=== PATIENT | male | born 1935 | race Caucasian/White ===

== ENCOUNTER → 2023-04-26 | Outpatient (CLI) | payer OTHER | END | disposition home or self-care (01) | LOC: RAD 10:48 | PROVIDERS: ATTEND Chiropractor | DX: M47.812 Spondylosis without myelopathy or radiculopathy, cervical region (principal); M25.78 Osteophyte, vertebrae ==

== ENCOUNTER 2023-09-18 19:08 | Inpatient (IN) | payer OTHER ==
[~2023-09-18] VITALS: Ht 175.3 cm; Wt 55.0 kg
[~2023-09-18 19:08] MED LIST: ACCUNEB 0.1.25 MG/1 INH; BREZTRI AEROS10.7 GM INH; Carafate1 GM PO; EMLA 2.5% 30GM30 GM T; HYDROXYZINE HCL25 MG PO; LISINOPRIL20 MG PO; METOPROLOL SUCC25 M2 PO; PANTOPRAZOLE SO40 MG PO; TOPROL XL25 MG PO
[2023-09-18 19:15] VITALS: BP 163/89
[2023-09-18] MEDS ORDERED: 8 HOUR PAIN RE650 M1 PO (19:42)
[2023-09-18] MEDS ORDERED: ONDANSETRON HYDR4 M1 PO (19:43)
[2023-09-18] MEDS ORDERED: ADULT LOW DOSE81 MG PO (19:46)
[2023-09-18] MEDS ORDERED: Diltiazem Hydrochloride 25 MG/5 ML VIAL IV ONE ×2 (19:50→21:50)
[2023-09-18 20:34] LABS: BASO # 0.1 10*3/uL (0.0-0.1); BASO % 0.6 % (0.0-1.0); EOS # 0.2 10*3/uL (0.0-0.4); EOS % 1.7 % (1.0-4.0); HEMATOCRIT 38.6 % (42.0-52.0); LYMPH # 1.1 10*3/uL (1.3-4.4); LYMPH % 12.3 % (27.0-41.0); MEAN CELL VOLUME 88.7 fl (80.0-94.0); MEAN CORPUSCULAR HGB 26.9 pg (27.0-31.0); MEAN CORPUSCULAR HGB CONC 30.3 g/dl (33.0-37.0); MEAN PLATELET VOLUME 10.3 fl (9.6-12.3); MONO # 0.6 10*3/uL (0.1-1.0); MONO % 6.9 % (3.0-9.0); NEUT # 7.2 10*3/uL (2.3-7.9); NEUT % 78.1 % (47.0-73.0); PLATELET COUNT AUTOMATED 191 10*3/uL (130-400); RED BLOOD COUNT 4.35 10*6/uL (4.50-5.90); WHITE BLOOD COUNT 9.3 10*3/uL (4.8-10.8)
[2023-09-18 20:49] LABS: ACT PARTIAL THROMBO TIME 35.5 SECONDS (20.0-32.1)
[2023-09-18 20:51] LABS: ALKALINE PHOSPHATASE 122 U/L (46-116); BUN 16 mg/dl (9-23); CHLORIDE 104 mmol/L (98-107); POTASSIUM 3.7 mmol/L (3.4-5.1); SGPT/ALT 16 U/L (5-49); TOTAL PROTEIN 6.4 gm/dL (6.0-8.0)
[2023-09-18] MEDS ORDERED: MORPHINE Sulfate 2 MG/ML SYR IV ONE (21:30)
[2023-09-18] MEDS ORDERED: BISACODYL 5 MG TAB PO PRN (21:45)
[2023-09-18] MEDS ORDERED: Acetaminophen/Hydrocodone 5 MG/325 MG TABLET PO PRN (21:45)
[2023-09-18] MEDS ORDERED: Ondansetron Hydrochloride 4 MG/2 ML VIAL IV PRN (21:45)
[2023-09-18] MEDS ORDERED: ACETAMINOPHEN 325 MG TAB PO PRN (21:45)
[2023-09-18] MEDS ORDERED: BISACODYL 10 MG SUPP R PRN (21:45)
[2023-09-18] MEDS ORDERED: ACETAMINOPHEN 650 MG SUPP R PRN (21:45)
[2023-09-18] MEDS ORDERED: MORPHINE Sulfate 2 MG/ML SYR IV PRN (21:45)
[2023-09-18] MEDS ORDERED: Albuterol Sulfate 1.25 MG/3 ML VIAL NEB SCH (22:00)
[2023-09-18] MEDS ORDERED: SUCRALFATE 1 GM TAB PO SCH (22:00)
[2023-09-18] MEDS ORDERED: Levalbuterol Hydrochloride 1.25 MG VIAL NEB SCH (22:00)
[2023-09-18 22:33] VITALS: BP 154/78
[2023-09-18 23:00] VITALS: BP 156/86
[2023-09-18] MEDS ORDERED: HEPARIN SODIUM 250 ML IV SCH (23:05)
[2023-09-18] MEDS ORDERED: Diltiazem Hydrochloride 125 ML IV SCH (23:05)
[2023-09-19] VITALS: BP 156/86
[2023-09-19] MEDS ORDERED: MORPHINE Sulfate 2 MG/ML SYR IV PRN ×2 (03:30→14:15)
[2023-09-19 06:14] LABS: BASO # 0.1 10*3/uL (0.0-0.1); BASO % 1.1 % (0.0-1.0); EOS # 0.1 10*3/uL (0.0-0.4); EOS % 1.2 % (1.0-4.0); HEMATOCRIT 39.6 % (42.0-52.0); LYMPH # 1.5 10*3/uL (1.3-4.4); MEAN CELL VOLUME 88.8 fl (80.0-94.0); MEAN CORPUSCULAR HGB 26.9 pg (27.0-31.0); MEAN CORPUSCULAR HGB CONC 30.3 g/dl (33.0-37.0); MEAN PLATELET VOLUME 10.8 fl (9.6-12.3); MONO # 0.6 10*3/uL (0.1-1.0); MONO % 5.8 % (3.0-9.0); NEUT # 7.7 10*3/uL (2.3-7.9); NEUT % 76.4 % (47.0-73.0); PLATELET COUNT AUTOMATED 194 10*3/uL (130-400); RED BLOOD COUNT 4.46 10*6/uL (4.50-5.90); RED CELL DISTRI WIDTH 14.9 % (0-14.5); WHITE BLOOD COUNT 10.1 10*3/uL (4.8-10.8)
[2023-09-19 07:27] LABS: ALKALINE PHOSPHATASE 124 U/L (46-116); BUN 14 mg/dl (9-23); CHLORIDE 103 mmol/L (98-107); CHOLESTEROL 107 mg/dL (<200); FREE T4 1.22 ng/dl (0.89-1.76); LDL CHOLESTEROL 54 mg/dL (9-159); POTASSIUM 3.8 mmol/L (3.4-5.1); SGPT/ALT 16 U/L (5-49); TOTAL PROTEIN 6.7 gm/dL (6.0-8.0); TRIGLYCERIDES 83 mg/dl (<150)
[2023-09-19] MEDS ORDERED: Pantoprazole Sodium 40 MG TAB PO SCH (07:30)
[2023-09-19 08:00] VITALS: BP 158/54
[2023-09-19] MEDS ORDERED: MORPHINE Sulfate 2 MG/ML SYR IV ONE (08:25)
[2023-09-19] MEDS ORDERED: ASPIRIN ENTERIC COATED 81 MG TAB PO SCH (10:00)
[2023-09-19] MEDS ORDERED: LISINOPRIL 20 MG TAB PO SCH (10:00)
[2023-09-19] MEDS ORDERED: METOPROLOL SUCCINATE XR 25 MG TAB PO SCH (10:00)
[2023-09-19] MEDS ORDERED: BACLOFEN 10 MG TAB PO PRN (10:35)
[2023-09-19] MEDS ORDERED: FOAM BANDAGE HEEL T ONE (10:50)
[2023-09-19] MEDS ORDERED: FOAM BANDAGE 5X5 T ONE (10:50)
[2023-09-19 12:00] VITALS: BP 161/51
[2023-09-19 16:00] VITALS: BP 159/54
[2023-09-19 20:00] VITALS: BP 125/35
[2023-09-20] VITALS: BP 152/57
[2023-09-20 06:28] LABS: ALKALINE PHOSPHATASE 116 U/L (46-116); BUN 18 mg/dl (9-23); CHLORIDE 100 mmol/L (98-107); POTASSIUM 3.6 mmol/L (3.4-5.1); SGPT/ALT 11 U/L (5-49); TOTAL PROTEIN 6.5 gm/dL (6.0-8.0)
[2023-09-20 06:29] LABS: BASO # 0.1 10*3/uL (0.0-0.1); BASO % 1.1 % (0.0-1.0); EOS # 0.4 10*3/uL (0.0-0.4); EOS % 3.7 % (1.0-4.0); HEMATOCRIT 37.6 % (42.0-52.0); LYMPH # 1.7 10*3/uL (1.3-4.4); LYMPH % 16.2 % (27.0-41.0); MEAN CELL VOLUME 86.8 fl (80.0-94.0); MEAN CORPUSCULAR HGB CONC 31.1 g/dl (33.0-37.0); MEAN PLATELET VOLUME 11.1 fl (9.6-12.3); MONO # 0.9 10*3/uL (0.1-1.0); NEUT # 7.1 10*3/uL (2.3-7.9); NEUT % 69.5 % (47.0-73.0); PLATELET COUNT AUTOMATED 180 10*3/uL (130-400); RED BLOOD COUNT 4.33 10*6/uL (4.50-5.90); RED CELL DISTRI WIDTH 14.9 % (0-14.5); WHITE BLOOD COUNT 10.2 10*3/uL (4.8-10.8)
[2023-09-20 08:00] VITALS: BP 157/57
[2023-09-20] MEDS ORDERED: Lidocaine/Prilocaine 5 GM TUBE T PRN (09:05)
[2023-09-20] MEDS ORDERED: Enoxaparin Sodium 40 MG/0.4 ML SYR SC SCH (10:00)
[2023-09-20] MEDS ORDERED: METOPROLOL SUCCINATE XR 25 MG TAB PO SCH (10:00)
[2023-09-20 12:00] VITALS: BP 143/48
[2023-09-20] MEDS ORDERED: METOPROLOL SUCC25 M2 PO (12:19)
== END 2023-09-20 16:11 | disposition short-term general hospital (02) | DRG 535 ==
LOC: ED 19:08 → 4E 20:14 → EDHOLD 20:14 → 4E 22:20
PROVIDERS: Internal Medicine; ADMIT Student in an Organized Health Care Education/Training Program; ATTEND Student in an Organized Health Care Education/Training Program
DX: S72.012A Unspecified intracapsular fracture of left femur, initial encounter for closed fracture (principal); E43 Unspecified severe protein-calorie malnutrition; C34.91 Malignant neoplasm of unspecified part of right bronchus or lung; I48.92 Unspecified atrial flutter; Z68.1 Body mass index [BMI] 19.9 or less, adult; Z66 Do not resuscitate; I48.91 Unspecified atrial fibrillation; D64.9 Anemia, unspecified; L89.890 Pressure ulcer of other site, unstageable; F17.210 Nicotine dependence, cigarettes, uncomplicated; J44.9 Chronic obstructive pulmonary disease, unspecified; K29.50 Unspecified chronic gastritis without bleeding; W10.8XXA Fall (on) (from) other stairs and steps, initial encounter; I10 Essential (primary) hypertension; Y93.89 Activity, other specified; Y92.89 Other specified places as the place of occurrence of the external cause; Y99.8 Other external cause status; Z71.6 Tobacco abuse counseling; Z83.3 Family history of diabetes mellitus; Z82.49 Family history of ischemic heart disease and other diseases of the circulatory system; Z98.42 Cataract extraction status, left eye; Z98.41 Cataract extraction status, right eye; Z79.51 Long term (current) use of inhaled steroids; Z79.82 Long term (current) use of aspirin; Z79.1 Long term (current) use of non-steroidal anti-inflammatories (NSAID); Z79.899 Other long term (current) drug therapy; Z51.5 Encounter for palliative care